=== PATIENT | female | born 1980 ===

== ENCOUNTER 2017-07-08 11:44 | Outpatient (CLI) | payer OTHER | END 2017-07-08 16:00 | disposition home or self-care (01) | LOC: MAMO-SONO 11:44 | DX: N60.01 Solitary cyst of right breast (principal); N95.1 Menopausal and female climacteric states; Z12.31 Encounter for screening mammogram for malignant neoplasm of breast ==

== ENCOUNTER 2018-01-31 12:08 | Outpatient (CLI) | payer OTHER | END 2018-01-31 12:17 | disposition home or self-care (01) | LOC: SONOGRAMA 12:08 | DX: C55 Malignant neoplasm of uterus, part unspecified (principal) ==

== ENCOUNTER 2020-10-13 10:28 | Outpatient (CLI) | payer OTHER | END 2020-10-13 10:51 | disposition home or self-care (01) | LOC: MAMO-SONO 10:28 | PROVIDERS: ATTEND Obstetrics & Gynecology | DX: N64.0 Fissure and fistula of nipple (principal); N84.0 Polyp of corpus uteri ==

== ENCOUNTER 2023-06-28 12:47 | Outpatient (CLI) | payer OTHER | END 2023-06-28 13:02 | disposition home or self-care (01) | LOC: MAMO-SONO 12:47 | PROVIDERS: ATTEND Obstetrics & Gynecology | DX: N64.0 Fissure and fistula of nipple (principal); N83.11 Corpus luteum cyst of right ovary; N83.12 Corpus luteum cyst of left ovary ==

== ENCOUNTER 2024-09-27 11:00 | Outpatient (CLI) | payer OTHER | END 2024-09-27 14:55 | disposition home or self-care (01) | LOC: MAMO-SONO 11:00 | PROVIDERS: ATTEND Obstetrics & Gynecology | DX: K11.8 Other diseases of salivary glands (principal); C07 Malignant neoplasm of parotid gland; K76.0 Fatty (change of) liver, not elsewhere classified; R16.0 Hepatomegaly, not elsewhere classified; N64.0 Fissure and fistula of nipple; Z12.31 Encounter for screening mammogram for malignant neoplasm of breast; N83.11 Corpus luteum cyst of right ovary; N83.12 Corpus luteum cyst of left ovary ==